=== PATIENT | female | born 1950 | race Caucasian/White ===

== ENCOUNTER → 2024-01-30 10:14 | Outpatient (REF) | payer MEDICARE, OTHER, SELFPAY | LOC: HWWDC 10:14 | PROVIDERS: ATTENDING PHYSICIAN Family Medicine | DX: Z12.31 Encounter for screening mammogram for malignant neoplasm of breast (principal) | CPT/HCPCS: 77063; 77067 ==

== ENCOUNTER → 2024-04-05 10:18 | Outpatient (REF) | payer MEDICARE, OTHER, SELFPAY ==
[2024-04-05 12:11] LABS: % Eosinophils 1.9 % (0-6); % Immature Granulocytes 0.3 % (0-0.5); % Lymphocytes 21.7 % (20.5-51.1); % Monocytes 9.6 % (1.7-9.3); % Neutrophils 65.5 % (42.2-75.2); Absolute Basophils 0.1 10^3/uL (0-0.2); Absolute Eosinophils 0.1 10^3/uL (0-0.7); Absolute Lymphocytes 1.3 10^3/uL (1.2-3.4); Absolute Monocytes 0.6 10^3/uL (0.1-0.6); Absolute Neutrophils 3.8 10^3/uL (1.4-6.5); Hematocrit 34.7 % (37.0-47.0); Hemoglobin 11.7 g/dL (12.0-16.0); Mean Corp Hgb Conc. 33.7 g/dL (33.0-37.0); Mean Corpuscular Hgb 31.5 pg (27.0-31.0); Mean Corpuscular Volume 93.3 fL (81.0-99.0); Mean Platelet Volume 11.5 fL (7.4-10.4); Nucleated Red Blood Cells % 0 %; Platelet Count 245 10^3/uL (130-400); Red Blood Cell Count 3.72 10^6/uL (4.20-5.40); Red Cell Dist. Width 12.7 % (11.5-14.5); White Blood Cell Count 5.8 10^3/uL (4.8-10.8)
[2024-04-05 12:23] LABS: ALT (SGPT) 31 U/L (0-35); AST (SGOT) 38 U/L (14-36); Alkaline Phosphatase 81 U/L (38-126); Blood Urea Nitrogen 23 mg/dl (7-17); Calcium 9.5 mg/dl (8.4-10.2); Carbon Dioxide 29 mmol/L (22-30); Chloride 103 mmol/L (98-107); Glucose 88 mg/dl (70-99); HDL Cholesterol 83 mg/dl; LDL Cholesterol, Calculated 98 mg/dl; Potassium 4.2 mmol/L (3.5-5.1); Sodium 138 mmol/L (135-145); Total Bilirubin 0.3 mg/dl (0.2-1.3); Total Cholesterol 196 mg/dl (50-199); Total Protein 6.8 g/dl (6.3-8.2); Triglyceride 77 mg/dl (10-149); Very Low Density Lipoprotein 15 mg/dl (0-30); eGFR > 60.00
[2024-04-05 12:29] LABS: Urine Albumin Negative (Neg - Trace); Urine Bilirubin Negative (Negative); Urine Character Clear (Clear); Urine Color Yellow; Urine Glucose Negative (Negative); Urine Ketone Negative (Negative); Urine Leukocyte Negative (Negative); Urine Nitrite Negative (Negative); Urine Occult Blood Negative (Negative); Urine Urobilinogen Negative (Neg - 1+)
[2024-04-05 12:49] LABS: Glycohemoglobin (HgbA1c) 5.7 % (4.0-5.6)
== END ==
LOC: HWLAB 10:18
PROVIDERS: ATTENDING PHYSICIAN Family Medicine
DX: R42 Dizziness and giddiness (principal); E78.2 Mixed hyperlipidemia; R63.6 Underweight; E03.9 Hypothyroidism, unspecified; R53.83 Other fatigue; M54.50 Low back pain, unspecified; R63.4 Abnormal weight loss; R73.9 Hyperglycemia, unspecified
CPT/HCPCS: 36415; 80053; 80061; 81003; 83036; 84443; 85025

== ENCOUNTER → 2024-06-24 13:00 | Outpatient (REF) | payer MEDICARE, OTHER, SELFPAY | LOC: HWRAD 13:00 | PROVIDERS: ATTENDING PHYSICIAN Family Medicine | DX: M54.50 Low back pain, unspecified (principal) | CPT/HCPCS: 72110 ==

== ENCOUNTER → 2024-07-12 10:33 | Outpatient (REF) | payer MEDICARE, OTHER, SELFPAY ==
[2024-07-12 11:36] LABS: % Basophils 1.1 % (0-2); % Eosinophils 3.1 % (0-6); % Immature Granulocytes 0.3 % (0-0.5); % Lymphocytes 14.4 % (20.5-51.1); % Monocytes 10.1 % (1.7-9.3); Absolute Basophils 0.1 10^3/uL (0-0.2); Absolute Eosinophils 0.2 10^3/uL (0-0.7); Absolute Monocytes 0.7 10^3/uL (0.1-0.6); Absolute Neutrophils 5.1 10^3/uL (1.4-6.5); Hematocrit 34.5 % (37.0-47.0); Hemoglobin 11.9 g/dL (12.0-16.0); Mean Corp Hgb Conc. 34.5 g/dL (33.0-37.0); Mean Corpuscular Hgb 31.9 pg (27.0-31.0); Mean Corpuscular Volume 92.5 fL (81.0-99.0); Mean Platelet Volume 10.3 fL (7.4-10.4); Nucleated Red Blood Cells % 0 %; Platelet Count 376 10^3/uL (130-400); Red Blood Cell Count 3.73 10^6/uL (4.20-5.40); Red Cell Dist. Width 12.5 % (11.5-14.5); White Blood Cell Count 7.2 10^3/uL (4.8-10.8)
[2024-07-12 14:21] LABS: ALT (SGPT) 46 U/L (0-35); AST (SGOT) 40 U/L (14-36); Albumin 4.3 g/dl (3.5-5.0); Alkaline Phosphatase 147 U/L (38-126); Blood Urea Nitrogen 25 mg/dl (7-17); Calcium 9.7 mg/dl (8.4-10.2); Carbon Dioxide 28 mmol/L (22-30); Chloride 100 mmol/L (98-107); Glucose 85 mg/dl (70-99); Iron 119 ug/dl (37-170); Potassium 4.6 mmol/L (3.5-5.1); Sodium 138 mmol/L (135-145); Total Bilirubin 0.4 mg/dl (0.2-1.3); eGFR > 60.00
[2024-07-12 14:30] LABS: Percent Saturation 35 % (20-50); Total Iron Binding Capacity 331 ug/dl (265-497)
[2024-07-12 14:51] LABS: Amylase 61 U/L (30-110); Lipase 36 U/L (23-300)
== END ==
LOC: HWLAB 10:33
PROVIDERS: ATTENDING PHYSICIAN Family Medicine
DX: R10.9 Unspecified abdominal pain (principal); R10.84 Generalized abdominal pain; D64.9 Anemia, unspecified
CPT/HCPCS: 36415; 80053; 82150; 83540; 83550; 83690; 85025

== ENCOUNTER → 2024-07-13 11:31 | Outpatient (REF) | payer MEDICARE, OTHER, SELFPAY | LOC: HWRAD 11:31 | PROVIDERS: ATTENDING PHYSICIAN Family Medicine | DX: M54.9 Dorsalgia, unspecified (principal) | CPT/HCPCS: 72072; 72110 ==

== ENCOUNTER → 2024-07-16 07:19 | Outpatient (REF) | payer MEDICARE, OTHER, SELFPAY | LOC: MRI 3T 07:19 | PROVIDERS: ATTENDING PHYSICIAN Family Medicine; REFERRING PHYSICIAN Internal Medicine | DX: S22.060A Wedge compression fracture of T7-T8 vertebra, initial encounter for closed fracture (principal) | CPT/HCPCS: 72146 ==

== ENCOUNTER → 2024-07-27 11:02 | Outpatient (REF) | payer MEDICARE, OTHER, SELFPAY | LOC: RADI 11:02 | PROVIDERS: ATTENDING PHYSICIAN Family Medicine | DX: S22.080A Wedge compression fracture of T11-T12 vertebra, initial encounter for closed fracture (principal); X58.XXXA Exposure to other specified factors, initial encounter ==

== ENCOUNTER 2024-07-27 17:45 | Emergency (ER) | payer MEDICARE, OTHER, SELFPAY ==
[2024-07-27 17:53] VITALS: BP 174/98
[2024-07-27 18:07] LABS: % Basophils 1.3 % (0-2); % Eosinophils 3.3 % (0-6); % Immature Granulocytes 0.4 % (0-0.5); % Monocytes 11.8 % (1.7-9.3); % Neutrophils 63.2 % (42.2-75.2); Absolute Basophils 0.1 10^3/uL (0-0.2); Absolute Eosinophils 0.3 10^3/uL (0-0.7); Absolute Lymphocytes 1.5 10^3/uL (1.2-3.4); Absolute Monocytes 0.9 10^3/uL (0.1-0.6); Absolute Neutrophils 4.8 10^3/uL (1.4-6.5); Hematocrit 36.6 % (37.0-47.0); Hemoglobin 12.7 g/dL (12.0-16.0); Mean Corp Hgb Conc. 34.7 g/dL (33.0-37.0); Mean Corpuscular Hgb 31.1 pg (27.0-31.0); Mean Corpuscular Volume 89.7 fL (81.0-99.0); Mean Platelet Volume 10.4 fL (7.4-10.4); Nucleated Red Blood Cells % 0 %; Platelet Count 339 10^3/uL (130-400); Red Blood Cell Count 4.08 10^6/uL (4.20-5.40); Red Cell Dist. Width 12.4 % (11.5-14.5); White Blood Cell Count 7.6 10^3/uL (4.8-10.8)
[2024-07-27 18:23] LABS: ALT (SGPT) 27 U/L (0-35); AST (SGOT) 37 U/L (14-36); Albumin 4.3 g/dl (3.5-5.0); Alkaline Phosphatase 151 U/L (38-126); Blood Urea Nitrogen 23 mg/dl (7-17); Calcium 9.2 mg/dl (8.4-10.2); Carbon Dioxide 25 mmol/L (22-30); Chloride 103 mmol/L (98-107); Glucose 86 mg/dl (70-99); Potassium 4.2 mmol/L (3.5-5.1); Sodium 141 mmol/L (135-145); Total Bilirubin 0.3 mg/dl (0.2-1.3); Total Protein 7.3 g/dl (6.3-8.2); eGFR > 60.00
[2024-07-27 19:17] VITALS: BMI 19.4
[2024-07-27 19:28] VITALS: BP 158/80
[2024-07-27 19:38] LABS: Urine Albumin Negative (Neg - Trace); Urine Bilirubin Negative (Negative); Urine Character Clear (Clear); Urine Color Yellow; Urine Glucose Negative (Negative); Urine Ketone Negative (Negative); Urine Leukocyte Trace (Negative); Urine Nitrite Negative (Negative); Urine Occult Blood Negative (Negative); Urine Urobilinogen Negative (Neg - 1+); Urine pH 6.5 (5.0-9.0)
[2024-07-27 19:44] LABS: Urine Red Blood Cell 0-2 /HPF (0-2); Urine White Cell 0-2 /HPF (0-5)
[2024-07-27 20:00] VITALS: BP 141/71
--- NOTE | 2024-07-27 20:43 | ED.GENMED ---
History of Present Illness
General
Chief Complaint: Back Pain
Source: patient
Time Seen by Provider: 07/27/24 20:26
History of Present Illness
History of Present Illness:
73-year-old female presents to the emergency room complaining of abdominal pain. Patient has been experiencing back pain and was diagnosed with a T8 compression fracture by MRI on July 16. She was seen in interventional radiology today for
consultation to see if there is anything that they could do to help with the pain. Patient has also been experiencing upper abdominal pain. This upper abdominal pain seems to be worse over the past couple days. She is also experiencing abdominal
bloating and distention for the past 3 weeks. Family concerned that her abdominal pain may be related to something different than the thoracic compression fracture prompting her visit to the emergency room. Patient is not having any vomiting. She
had a bowel movement today. No diarrhea. Patient is taking ibuprofen for pain and has been taking up to 8 tablets a day. No black or bloody stool.
Past History
Past History
ED Past Medical History: Cancer (Based basal cell) and Other (Vasovagal syncope, Vertigo)
ED Past Surgical History:
Social History
Tobacco: Former smoker
Alcohol: Occasional
Personal:
Living: with family
Phy Exam
Physical Exam
Physical Exam:
General: Awake, Alert, Oriented X3. No acute distress.
Vitals: unremarkable
Head: Atraumatic
Eyes: Pupils equal, EOMI
Throat: Airway intact, no exudates
Neck: Trachea midline
Lungs: Clear and equal b/l
Heart: Regular rate, no murmurs
Abd: Soft, moderately tender to palpation diffusely, No pulsatile mass
Neuro: Nonfocal
Skin: Warm, dry, no rash
Extremities: pulses equal b/l, no edema
Course
Orders/Labs/Results
Orders:
Orders
07/27/24 17:57
Complete Blood Count/With Diff Urgent
Comprehensive Metabolic Panel Urgent
07/27/24 19:29
UA Reflex to Culture [Urinalysis Reflex To Culture] Urgent
Date Specimen was Collected: 07/27/24
Time Specimen was Collected: 19:13
Urine Microscopic Reflex Cult Urgent
07/27/24 20:40
0.9% Sodium Chloride 1000 ml [Nss] 1,000 ml IV BOLUS
HYDROmorphone [Dilaudid] 0.25 mg IV NOW STA
Iohexol [Omnipaque] See Protocol PO NOW STA
Ondansetron Injectable [Zofran] 4 mg IV NOW STA
07/27/24 20:42
CT Abd/pel W Iv And Oral Contr Urgent
Comment:
Reason For Exam: abdominal pain, distension
07/27/24 22:08
HYDROmorphone [Dilaudid] 0.5 mg IV NOW STA
07/27/24 23:48
Ondansetron Injectable [Zofran] 4 mg IV NOW STA
Abnormal Lab Results
07/27/24 07/27/24
17:57 19:29
RBC 4.08 L 10^6/uL
(4.20-5.40)
Hct 36.6 L %
(37.0-47.0)
MCH 31.1 H pg
(27.0-31.0)
Absolute Monos (auto) 0.9 H 10^3/uL
(0.1-0.6)
Lymphocytes % 20.0 L %
(20.5-51.1)
Monocytes % 11.8 H %
(1.7-9.3)
BUN 23 H mg/dl
(7-17)
Creatinine 0.5 L mg/dL
(0.6-1.0)
AST 37 H U/L
(14-36)
Alkaline Phosphatase 151 H U/L
(38-126)
Leukocyte Esterase Rfl Trace A
(Negative)
07/27/24 17:57
07/27/24 17:57
Vital Signs
Initial and Last Documented VS:
Initial Vital Signs
Temp Pulse Resp BP Pulse Ox
98.3 F 82 16 174/98 98
07/27/24 17:53 07/27/24 17:53 07/27/24 17:53 07/27/24 17:53 07/27/24 17:53
Last Documented Vital Signs
Temp Pulse Resp BP Pulse Ox
98.3 F 75 15 137/77 93
07/27/24 17:53 07/28/24 00:30 07/28/24 00:30 07/28/24 00:00 07/27/24 23:00
MDM/Problems Addressed
Differential Diagnosis Includes:
Radicular pain from compression fracture, pancreatitis, cholecystitis, constipation, peptic ulcer disease, gastritis
MDM/Problems Addressed:
Patient presents with continued back pain as well as some abdominal pain. Her labs are reassuring. CT of the abdomen and pelvis does not show any acute inflammatory process. Urinalysis is good. There is a moderate amount of stool throughout the
rectum. Recommend lactulose for constipation. Will prescribe short course of hydrocodone to help with her back pain. Recommend treatment with pain management.
*Radiology
Radiology exam reviewed: radiology read reviewed
*Pulse Oximetry
Patient hypoxic: no
*Critical Care Note
Total Time (30-74mins, 75-104mins- exclusive of procedures): Not Applicable
ED Attending Note
-
Portions of this chart may have been created with voice recognition software.� Occasional wrong word or��sound alike� substitutions may have occurred due to the inherent limitations of voice recognition software.
Discharge Plan
Departure
Patient Disposition: Home (Routine Discharge)
Date of Disposition: 07/28/24
Time of Disposition: 00:12
Patient with high blood pressure during this ER visit?: No
Condition: Good
Discharge Problem:
Compression fx, thoracic spine, Abdominal pain, Constipation
Instructions: Upper Back Pain (DC), Constipation, Adult ED, Abdominal Pain
Prescriptions:
New
lactulose 20 gram/30 mL solution
20 g PO BID PRN (Reason: Constipation) Qty: 1200 0RF
hydrocodone-acetaminophen 5-325 mg tablet
1 tab PO QID PRN (Reason: Pain) Qty: 14 0RF
No Action
raloxifene 60 MG tablet
60 mg PO DAILY
duloxetine 30 MG capsule,delayed release(DR/EC)
30 mg PO DAILY
cholecalciferol (vitamin D3) 10,000 UNIT tablet
50,000 unit PO .QMONTH
ondansetron 4 MG tablet,disintegrating
4 mg PO Q8HPRN PRN (Reason: Nausea/Vomiting) Qty: 10 0RF
Referrals:
Flavio Best MD [Family Provider] -
Keshawn Claire MD [Active] -
Activity Restrictions/Additional Instructions:
Use lactulose twice a day until you have adequate bowel movements. Return for worsening abdominal pain. Call Dr. Claire's office in the morning.
Interventions
Interventions:
*Risk Screen - Suicide Last Done: 07/27/24 19:22
*General Assessment Last Done: 07/27/24 19:22
*Neglect/Abuse Screening Last Done: 07/27/24 19:22
ED- Fall Risk Assessment Last Done: 07/28/24 00:45
*ED COVID-19 Vaccine History Last Done: 07/27/24 19:22
*Nursing Disposition Last Done: 07/28/24 00:45
ED-Musculoskeletal Assessment Last Done: 07/27/24 21:13
Discharge Date and Time
Print Language: ARABIC
[2024-07-27] MEDS: OMNIPAQUE 50 ML PO (20:58)
[2024-07-27] MEDS: DILAUDID 0.25 MG IV (20:58)
[2024-07-27] MEDS: NSS 1000 IV (20:59)
[2024-07-27] MEDS: ZOFRAN 4 MG IV ×2 (20:59→23:50)
[2024-07-27 21:00] VITALS: BP 153/72
[2024-07-27] MEDS: DILAUDID 0.5 MG IV (22:12)
[2024-07-27 23:00] VITALS: BP 137/73
[2024-07-28] VITALS: BP 137/77
== END 2024-07-28 00:45 | disposition home or self-care (01) ==
LOC: EMR 17:45
PROVIDERS: Emergency Medicine; EMERGENCY PHYSICIAN Emergency Medicine; FAMILY PHYSICIAN Family Medicine
DX: R10.10 Upper abdominal pain, unspecified (principal); K59.00 Constipation, unspecified; S22.000A Wedge compression fracture of unspecified thoracic vertebra, initial encounter for closed fracture; X58.XXXA Exposure to other specified factors, initial encounter; Z87.891 Personal history of nicotine dependence
CPT/HCPCS: 99285; 96374; 96375; 96361; 96376 ×2; 74177; 80053; 81003; 81015; 85025; Q9967

== ENCOUNTER 2024-08-04 04:17 | Emergency (ER) | payer MEDICARE, OTHER, SELFPAY ==
[2024-08-04 04:20] VITALS: BP 110/62
[2024-08-04 04:30] VITALS: BMI 20.7
--- NOTE | 2024-08-04 04:35 | ED.GENMED ---
History of Present Illness
<PINKY Jennings - Last Filed: 08/04/24 05:53>
General
Chief Complaint: Fainting/Passed Out
Time Seen by Provider: 08/04/24 04:35
History of Present Illness
History of Present Illness:
Patient is a 74 year old female presenting to the ED after passing out x 1 hour ago. Patient states she remembers leaning over a bed to help her kid and she lost consciousness. Her helped her to a chair, and she denies falling or hitting her
head. Son stated that she was unconscious and wasn't fully oriented until about 10 minutes passed. She states she's had syncopal episodes before but they were caused from medication. She denies any numbness tingling chest pain sob headache fever.
Patient has a pmh of constipation and claims to be nauseous but is taking lactulose. She also was diagnosed with a compression fracture 2 weeks ago and reports weight loss from it. Denies any alcohol or tobacco use. She claims that narcotics make
her blood pressure drop and she passes out.
Past History
<PINKY Jennings - Last Filed: 08/04/24 05:53>
Past History
ED Past Medical History: Cancer (Based basal cell) and Other (Vasovagal syncope, Vertigo)
ED Past Surgical History:
Social History
Tobacco: Former smoker
Alcohol: Occasional
Personal:
Living: with family
Review of Systems
<PINKY Jennings - Last Filed: 08/04/24 05:53>
Review of Systems
Constitutional: Reports weight loss
Respiratory: Reports no symptoms
Cardiac: Reports no symptoms
ABD/GI: Reports abdominal pain and nausea
Neurological: Reports no symptoms
Phy Exam
<PINKY Jennings - Last Filed: 08/04/24 05:53>
Physical Exam
Physical Exam:
see physical
Cardiovascular Exam
Cardiovascular Exam: regular rate/rhythm, no edema, no gallop, no JVD and no murmur
Pulmonary Exam
Pulmonary Exam: lungs clear, no respiratory distress, no rales, chest non tender, no crackles, no rhonchi, no stridor, no wheezing and no cough
Sensory
Sensory Exam: intact
Course
<PINKY Jennings - Last Filed: 08/04/24 05:53>
Orders/Labs/Results
Orders:
Orders
08/04/24 04:45
EKG [Electrocardiogram (*1)] Urgent
Reason for Study: Syncope
08/04/24 04:46
EKG- Treatment ONCE
08/04/24 04:47
CR Abdomen - 1 View Urgent
Comment:
Reason For Exam: abd pain
08/04/24 05:03
0.9% Sodium Chloride 1000 ml [Nss] 1,000 ml IV BOLUS
08/04/24 05:11
Complete Blood Count/With Diff Urgent
Comprehensive Metabolic Panel Urgent
08/04/24 06:09
Ondansetron Injectable [Zofran] 4 mg .ROUTE .STK-MED ONE
08/04/24 06:10
Ondansetron Injectable [Zofran] 4 mg IV NOW STA
Abnormal Lab Results
08/04/24
05:11
RBC 4.07 L 10^6/uL
(4.20-5.40)
MPV 10.6 H fL
(7.4-10.4)
Absolute Monos (auto) 0.9 H 10^3/uL
(0.1-0.6)
Lymphocytes % 19.7 L %
(20.5-51.1)
Monocytes % 11.9 H %
(1.7-9.3)
BUN 22 H mg/dl
(7-17)
Creatinine 0.5 L mg/dL
(0.6-1.0)
Alkaline Phosphatase 155 H U/L
(38-126)
08/04/24 05:11
08/04/24 05:11
Vital Signs
Initial and Last Documented VS:
Initial Vital Signs
Temp Pulse Resp BP Pulse Ox
97.8 F 78 22 110/62 97
08/04/24 04:20 08/04/24 04:20 08/04/24 04:20 08/04/24 04:20 08/04/24 04:20
Last Documented Vital Signs
Temp Pulse Resp BP Pulse Ox
97.8 F 74 13 136/68 100
08/04/24 04:20 08/04/24 06:15 08/04/24 06:15 08/04/24 06:14 08/04/24 06:15
<Galen Castillo, DO - Last Filed: 08/04/24 07:30>
Orders/Labs/Results
Orders:
Orders
08/04/24 04:45
EKG [Electrocardiogram (*1)] Urgent
Reason for Study: Syncope
08/04/24 04:46
EKG- Treatment ONCE
08/04/24 04:47
CR Abdomen - 1 View Urgent
Comment:
Reason For Exam: abd pain
08/04/24 05:03
0.9% Sodium Chloride 1000 ml [Nss] 1,000 ml IV BOLUS
08/04/24 05:11
Complete Blood Count/With Diff Urgent
Comprehensive Metabolic Panel Urgent
08/04/24 06:09
Ondansetron Injectable [Zofran] 4 mg .ROUTE .STK-MED ONE
08/04/24 06:10
Ondansetron Injectable [Zofran] 4 mg IV NOW STA
Abnormal Lab Results
08/04/24
05:11
RBC 4.07 L 10^6/uL
(4.20-5.40)
MPV 10.6 H fL
(7.4-10.4)
Absolute Monos (auto) 0.9 H 10^3/uL
(0.1-0.6)
Lymphocytes % 19.7 L %
(20.5-51.1)
Monocytes % 11.9 H %
(1.7-9.3)
BUN 22 H mg/dl
(7-17)
Creatinine 0.5 L mg/dL
(0.6-1.0)
Alkaline Phosphatase 155 H U/L
(38-126)
08/04/24 05:11
08/04/24 05:11
Vital Signs
Initial and Last Documented VS:
Initial Vital Signs
Temp Pulse Resp BP Pulse Ox
97.8 F 78 22 110/62 97
08/04/24 04:20 08/04/24 04:20 08/04/24 04:20 08/04/24 04:20 08/04/24 04:20
Last Documented Vital Signs
Temp Pulse Resp BP Pulse Ox
97.8 F 74 13 136/68 100
08/04/24 04:20 08/04/24 06:15 08/04/24 06:15 08/04/24 06:14 08/04/24 06:15
<PINKY Jennings - Last Filed: 08/04/24 05:53>
MDM/Problems Addressed
Differential Diagnosis Includes:
hypoglycemia, hypotension
MDM/Problems Addressed:
order blood work and ekg
<PINKY Jennings - Last Filed: 08/04/24 05:53>
*Critical Care Note
Total Time (30-74mins, 75-104mins- exclusive of procedures): Not Applicable
ED Attending Note
<PINKY Jennings - Last Filed: 08/04/24 05:53>
-
Portions of this chart may have been created with voice recognition software.� Occasional wrong word or��sound alike� substitutions may have occurred due to the inherent limitations of voice recognition software.
<Galen Castillo DO - Last Filed: 08/04/24 07:30>
ED Attending Note
Patient seen and examined by attending physician: Yes
I performed the substantive portion of visit, reviewed & personally made and approve the management plan that is documented in note by myself or FALGUNI.: Yes
ED Attending Note:
Pleasant 74-year-old female presents to the emergency department after a near syncopal/syncopal event that occurred 1 hour prior to arrival. Patient was leaning over her bed to help her disabled adult child. She then lost consciousness. She was
helped to a chair by her . She did not fall or hit her head. Patient has been having abdominal pain recently. She was seen in the emergency department had a CAT scan performed. She has been constipated. She states that she has not had a
normal bowel movement in over a week. She states that she has not eating or drinking normally due to her abdominal bloating. Denies fever or chills. Does report some nausea without vomiting. She is due for a spinal surgery next week. She states
that because of the low back pain, she has not been eating and drinking normally lately. Patient was seen in conjunction with the PA student. I have reviewed and agree with the history and treatment plan presented. On my independent physical
exam, patient is awake, alert, and oriented x3, minimal acute distress. Heart is regular rate rhythm. Lungs are clear to auscultation bilaterally. Abdomen is soft with slight tenderness to palpation diffusely and in the lower abdomen. There are
normal bowel sounds x 4 quadrants. Patient's skin is warm and dry. She moves all 4 extremities. She is mentating appropriately. She is accompanied by her daughter.
Differential diagnosis is vasovagal syncope, constipation causing dehydration, orthostatic hypotension.
Patient had a very large bowel movement with the enema. She states that she is feeling much better and wishes to be discharged home. She will take MiraLAX [id number] as directed. She will also take stool softeners. I will provide Zofran.
She does have occasional nausea. She has no further questions at this time and both she and her daughter wish to be discharged home. Discussed return to ER instructions with patient and daughter. They verbalized good understanding and are being
discharged in much improved condition.
Discharge Plan
Departure
Patient Disposition: Home (Routine Discharge)
Date of Disposition: 08/04/24
Time of Disposition: 07:24
Patient with high blood pressure during this ER visit?: Yes
Condition: Good
Discharge Problem:
Syncope, Acute constipation
Instructions: Constipation, Adult (DC), Syncope (Fainting) (DC), Abdominal Pain, BLOOD PRESSURE
Prescriptions:
New
ondansetron 4 mg tablet,disintegrating
4 mg PO Q6H PRN (Reason: nausea and vomiting) Qty: 10 0RF
No Action
duloxetine 30 MG capsule,delayed release(DR/EC)
30 mg PO DAILY
cholecalciferol (vitamin D3) 10,000 UNIT tablet
50,000 unit PO .QMONTH
ondansetron 4 MG tablet,disintegrating
4 mg PO Q8HPRN PRN (Reason: Nausea/Vomiting) Qty: 10 0RF
lactulose 20 gram/30 mL solution
20 g PO BID PRN (Reason: Constipation) Qty: 1200 0RF
Prolia 60 mg/mL Syringe
60 mg SC [id number]
Referrals:
Flavio Best MD [Family Provider] -
Activity Restrictions/Additional Instructions:
Your prescription was sent to the pharmacy you specified.
It was a pleasure meeting you and taking part in your care. We hope for your continued healing and wellness.
Please read discharge instructions in their entirety. However, they are for general education and may not describe your exact diagnosis at discharge. Information on your ER visit and medical conditions were discussed with you along with appropriate
follow up information...
If indicated, please take your medications as instructed and indicated on discharge paperwork.
Please schedule a follow up appointment as directed. Call to schedule an appointment
Please return to the emergency department with ANY change in, persisting, or worsening of symptoms. If any of your symptoms do not improve, or persist, or become more severe within 6-12 hours, please return to the emergency department for further
care.
Please return to the emergency department if you develop a headache, neck pain/stiffness, fever greater than 100.4F, chest pain, shortness of breath, persistent nausea, vomiting, slurred speech, difficulty walking, numbness/tingling, weakness, signs
of infection or any other symptoms that are worrisome to you.
If you have any questions or concerns please do not hesitate to call the Hospital at or E-mail me directly at [email or web address]
Interventions
Interventions:
*Risk Screen - Suicide Last Done: 08/04/24 04:20
*General Assessment Last Done: 08/04/24 04:30
*Neglect/Abuse Screening Last Done: 08/04/24 04:20
ED- Fall Risk Assessment Last Done: 08/04/24 04:30
*ED COVID-19 Vaccine History Last Done: 08/04/24 04:30
Discharge Date and Time
Print Language: DIVEHI
[2024-08-04 05:09] VITALS: BP 126/74
[2024-08-04] MEDS: NSS 1000 IV (05:15)
[2024-08-04 05:21] LABS: % Basophils 1.1 % (0-2); % Eosinophils 3.8 % (0-6); % Immature Granulocytes 0.4 % (0-0.5); % Lymphocytes 19.7 % (20.5-51.1); % Monocytes 11.9 % (1.7-9.3); % Neutrophils 63.1 % (42.2-75.2); Absolute Basophils 0.1 10^3/uL (0-0.2); Absolute Eosinophils 0.3 10^3/uL (0-0.7); Absolute Lymphocytes 1.5 10^3/uL (1.2-3.4); Absolute Monocytes 0.9 10^3/uL (0.1-0.6); Absolute Neutrophils 4.7 10^3/uL (1.4-6.5); Hematocrit 37.3 % (37.0-47.0); Hemoglobin 12.5 g/dL (12.0-16.0); Mean Corp Hgb Conc. 33.5 g/dL (33.0-37.0); Mean Corpuscular Hgb 30.7 pg (27.0-31.0); Mean Corpuscular Volume 91.6 fL (81.0-99.0); Mean Platelet Volume 10.6 fL (7.4-10.4); Nucleated Red Blood Cells % 0 %; Platelet Count 301 10^3/uL (130-400); Red Blood Cell Count 4.07 10^6/uL (4.20-5.40); Red Cell Dist. Width 12.7 % (11.5-14.5); White Blood Cell Count 7.4 10^3/uL (4.8-10.8)
[2024-08-04 05:52] LABS: ALT (SGPT) 28 U/L (0-35); AST (SGOT) 34 U/L (14-36); Albumin 4.1 g/dl (3.5-5.0); Alkaline Phosphatase 155 U/L (38-126); Blood Urea Nitrogen 22 mg/dl (7-17); Calcium 9.1 mg/dl (8.4-10.2); Carbon Dioxide 24 mmol/L (22-30); Chloride 104 mmol/L (98-107); Estimated Creatinine Clearance 58 ml/min; Glucose 97 mg/dl (70-99); Potassium 4.5 mmol/L (3.5-5.1); Sodium 140 mmol/L (135-145); Total Bilirubin 0.3 mg/dl (0.2-1.3); Total Protein 6.8 g/dl (6.3-8.2); eGFR > 60.00
[2024-08-04] MEDS: ZOFRAN 4 MG IV (06:11)
[2024-08-04 06:14] VITALS: BP 136/68
== END 2024-08-04 07:30 | disposition home or self-care (01) ==
LOC: EMR 04:17
PROVIDERS: EMERGENCY PHYSICIAN Student in an Organized Health Care Education/Training Program; FAMILY PHYSICIAN Family Medicine
DX: R55 Syncope and collapse (principal); K59.09 Other constipation; Z87.891 Personal history of nicotine dependence
CPT/HCPCS: 99283; 96374; 96361; 74018; 80053; 85025; 93005

== ENCOUNTER 2024-09-07 07:45 | Emergency (ER) | payer MEDICARE, OTHER, SELFPAY ==
[2024-09-07] VITALS (9 sets, daily range): BP systolic 126–156; BP diastolic 72–82; BMI 19.9
--- NOTE | 2024-09-07 07:55 | ED.GENMED ---
History of Present Illness
<Raven Griffith MD, Resident - Last Filed: 09/07/24 14:40>
General
Chief Complaint: Bowel Problem
Source: patient
Exam Limitations: none
Time Seen by Provider: 09/07/24 07:50
History of Present Illness
History of Present Illness:
74-year-old female with PMHx of T8 vertebral compression fracture s/p kyphoplasty, presents to [facility] ER for evaluation of fecal incontinence. Initially 2 months ago she was constipated, and was started on MiraLAX bowel regimen once a
day, her constipation improved after kyphoplasty last month. For 2 weeks she was having regular bowel movements, but 2 weeks ago she started feeling backed up for about 3 to 4 days and then she started experiencing fecal incontinence. She has
overflow of her stool and would not even know until she smells bad. On last week she reached out to her primary on phone who then increased her MiraLAX dosing to 3 times a day. With increased MiraLAX dosing she was able to get bowel
movements which were pencil like, 4 on [place] stool scale but her overflow incontinence worsened with watery bowel movements. She did not notice any blood or mucus in the stools. Today in the morning she had nausea which prompted her to come to
the ER. Her incontinence is accompanied by pain in the left quadrant of the abdomen which is sharp and shooting, intermittent, 5/10 in intensity. She occasionally has rectal pain while passing stools. Over the last 1 year she also reported losing
more than 10 pounds of weight loss. Last colonoscopy was in 2019 which was normal.
She denies having rectal urgency, hesitancy, dysuria, frequency, hesitancy with urine, fevers, chills, emesis, sick contacts, prolonged hospital stays, recent antibiotic course. She did not notice much change in her strength.
Of note she saw a shading painter who prescribed her codeine and morphine, she took 1 dose of the 2 medications and had a episode of pass out hence she stopped taking opioids for pain. Currently she is alternating between optimal Tylenol
and ibuprofen regimen at home for pain.
If applicable-neuro sx onset
Onset of symptoms known: No
Time pt last seen normal is known: Yes
Date last time pt seen normal: 09/07/24
Past History
<Raven Griffith MD, Resident - Last Filed: 09/07/24 14:40>
Past History
ED Past Medical History: Cancer (basal cell) and Other (Vasovagal syncope, Vertigo)
ED Past Surgical History:
Social History
Tobacco: Former smoker
Alcohol: Occasional
Drug: None
Personal:
Living: with family
Employment: Retired
Family History
Family History: Other (Not pertinent)
Review of Systems
<Raven Griffith MD, Resident - Last Filed: 09/07/24 14:40>
Review of Systems
Allergies reviewed?: Yes
Constitutional: Reports weight loss
EENT: Reports no symptoms
Respiratory: Reports no symptoms
Cardiac: Reports no symptoms
ABD/GI: Reports abdominal pain, nausea, constipated and other (Incontinence, overflow diarrhea.)
: Reports no symptoms
Musculoskeletal: Reports no symptoms
Skin: Reports no symptoms
Neurological: Reports no symptoms
Endocrine: Reports no symptoms
Hematologic/Lymphatic: Reports no symptoms
Psychiatric: Reports no symptoms
Phy Exam
<Raven Griffith MD, Resident - Last Filed: 09/07/24 14:40>
General Physical Exam
General Presentation: well appearing
General Skin: warm
General Habitus: normal
General Mental: alert
General Hydration: appears well hydrated
Eye Exam
Eye Exam: PERRL and EOMI
Cardiovascular Exam
Cardiovascular Exam: no edema, no gallop, no murmur, JVD and no carotid bruit
Heart Sounds: normal
Pulmonary Exam
Pulmonary Exam: lungs clear, no respiratory distress, no rales, no crackles and no rhonchi
Gastrointestinal Exam
Gastrointestinal Exam: normal bowel sounds, soft, distended (Mildly distended), surgical scar, tender (Tender in left upper and left lower quadrants) and tympanitic
Rectal Exam: normal external exam, normal sphincter tone, no rectal mass, no stool and other (Mild discomfort.)
Neurological Exam
Neurological Exam: alert, no motor deficits and normal reflexs (In bilateral lower legs.)
Course
<Raven Griffith MD, Resident - Last Filed: 09/07/24 14:40>
Orders/Labs/Results
Orders:
Orders
09/07/24 08:43
Iohexol [Omnipaque] See Protocol PO NOW STA
09/07/24 08:45
CT Abd/pel W Iv And Oral Contr Urgent
Comment:
Reason For Exam: constipation and overflow incontinence
09/07/24 09:12
Complete Blood Count/With Diff Urgent
Comprehensive Metabolic Panel Urgent
09/07/24 12:46
Enema- Treatment ONCE
Type: Milk of Molasses
Abnormal Lab Results
09/07/24
09:12
RBC 3.93 L 10^6/uL
(4.20-5.40)
Hct 36.7 L %
(37.0-47.0)
MCH 32.1 H pg
(27.0-31.0)
MPV 11.2 H fL
(7.4-10.4)
Absolute Lymphs (auto) 1.1 L 10^3/uL
(1.2-3.4)
Absolute Monos (auto) 0.8 H 10^3/uL
(0.1-0.6)
Lymphocytes % 18.4 L %
(20.5-51.1)
Monocytes % 12.1 H %
(1.7-9.3)
Creatinine 0.5 L mg/dL
(0.6-1.0)
AST 41 H U/L
(14-36)
ALT 45 H U/L
(0-35)
Alkaline Phosphatase 132 H U/L
(38-126)
09/07/24 09:12
09/07/24 09:12
Vital Signs
Initial and Last Documented VS:
Initial Vital Signs
Temp Pulse Resp BP Pulse Ox
98.2 F 79 16 134/72 100
09/07/24 07:47 09/07/24 07:47 09/07/24 07:47 09/07/24 07:47 09/07/24 07:47
Last Documented Vital Signs
Temp Pulse Resp BP Pulse Ox
98.2 F 76 16 126/80 99
09/07/24 07:47 09/07/24 14:00 09/07/24 07:47 09/07/24 14:00 09/07/24 09:15
<Valentin Reynolds MD - Last Filed: 09/07/24 09:25>
Orders/Labs/Results
Orders:
Orders
09/07/24 08:43
Iohexol [Omnipaque] See Protocol PO NOW STA
09/07/24 08:45
CT Abd/pel W Iv And Oral Contr Urgent
Comment:
Reason For Exam: constipation and overflow incontinence
09/07/24 09:12
Complete Blood Count/With Diff Urgent
Comprehensive Metabolic Panel Urgent
09/07/24 12:46
Enema- Treatment ONCE
Type: Milk of Molasses
Abnormal Lab Results
09/07/24
09:12
RBC 3.93 L 10^6/uL
(4.20-5.40)
Hct 36.7 L %
(37.0-47.0)
MCH 32.1 H pg
(27.0-31.0)
MPV 11.2 H fL
(7.4-10.4)
Absolute Lymphs (auto) 1.1 L 10^3/uL
(1.2-3.4)
Absolute Monos (auto) 0.8 H 10^3/uL
(0.1-0.6)
Lymphocytes % 18.4 L %
(20.5-51.1)
Monocytes % 12.1 H %
(1.7-9.3)
Creatinine 0.5 L mg/dL
(0.6-1.0)
AST 41 H U/L
(14-36)
ALT 45 H U/L
(0-35)
Alkaline Phosphatase 132 H U/L
(38-126)
09/07/24 09:12
09/07/24 09:12
Vital Signs
Initial and Last Documented VS:
Initial Vital Signs
Temp Pulse Resp BP Pulse Ox
98.2 F 79 16 134/72 100
09/07/24 07:47 09/07/24 07:47 09/07/24 07:47 09/07/24 07:47 09/07/24 07:47
Last Documented Vital Signs
Temp Pulse Resp BP Pulse Ox
98.2 F 76 16 126/80 99
09/07/24 07:47 09/07/24 14:00 09/07/24 07:47 09/07/24 14:00 09/07/24 09:15
<Raven Griffith MD, Resident - Last Filed: 09/07/24 14:40>
*Critical Care Note
Total Time (30-74mins, 75-104mins- exclusive of procedures): Not Applicable
ED Attending Note
<Raven Griffith MD, Resident - Last Filed: 09/07/24 14:40>
-
Portions of this chart may have been created with voice recognition software.� Occasional wrong word or��sound alike� substitutions may have occurred due to the inherent limitations of voice recognition software.
<Valentin Reynolds MD - Last Filed: 09/07/24 09:25>
ED Attending Note
Patient seen and examined by attending physician: Yes
I performed a history and physical exam of patient and discussed management with resident, I reviewed resident's note and agree with documented findings and plan of care.: Yes
ED Attending Note:
74-year-old female presents with bowel leakage for a week or so. Some mild abdominal distention and bloating. Mild nausea this morning. No fever. History of recent kyphoplasty. No distal numbness tingling or weakness. No fever. History of
constipation intermittently for years.
On exam patient is nontoxic in no distress. Lungs are clear and equal. Heart regular rate and rhythm no murmur. Abdomen is soft but with mild distention diffusely across the lower abdomen. Not tender however. Questionable palpable mass left
lower quadrant. No rebound or guarding.
Clinically patient is nontoxic in no distress. She has good lower extremity strength. She has equal and reasonable patellar reflexes. She has no clonus. Nothing to support a spinal issue. She was not impacted rectally. Therefore workup for
change in bowel caliber and symptoms. Labs and CT scan.
Discharge Plan
Departure
Patient Disposition: Home (Routine Discharge)
Date of Disposition: 09/07/24
Time of Disposition: 14:36
Patient with high blood pressure during this ER visit?: No
Condition: Fair
Discharge Problem:
Overflow diarrhea, Constipation, unspecified, Abnormal stool caliber
Instructions: Constipation, Adult (DC), Fecal Impaction (DC)
Prescriptions:
No Action
duloxetine 30 MG capsule,delayed release(DR/EC)
30 mg PO DAILY
cholecalciferol (vitamin D3) 10,000 UNIT tablet
50,000 unit PO .QMONTH
ondansetron 4 MG tablet,disintegrating
4 mg PO Q8HPRN PRN (Reason: Nausea/Vomiting) Qty: 10 0RF
lactulose 20 gram/30 mL solution
20 g PO BID PRN (Reason: Constipation) Qty: 1200 0RF
Prolia 60 mg/mL Syringe
60 mg SC [id number]
ondansetron 4 mg tablet,disintegrating
4 mg PO Q6H PRN (Reason: nausea and vomiting) Qty: 10 0RF
Referrals:
UNKNOWN - PT DOES,NOT KNOW [Unknown Provider] -
Activity Restrictions/Additional Instructions:
Follow-up with your GI doctor within 2 to 3 weeks of discharge
Interventions
Interventions:
*Risk Screen - Suicide Last Done: 09/07/24 07:47
*General Assessment Last Done: 09/07/24 07:47
*Neglect/Abuse Screening Last Done: 09/07/24 07:47
*ED COVID-19 Vaccine History Last Done: 09/07/24 09:15
AY-Ukevsy-Lnxrfzmfyh Assessment Last Done: 09/07/24 10:43
Discharge Date and Time
Print Language: CAPE VERDE[place]
[2024-09-07] MEDS: OMNIPAQUE 50 ML PO (09:10)
[2024-09-07 09:35] LABS: % Basophils 1.3 % (0-2); % Eosinophils 2.1 % (0-6); % Immature Granulocytes 0.2 % (0-0.5); % Lymphocytes 18.4 % (20.5-51.1); % Monocytes 12.1 % (1.7-9.3); % Neutrophils 65.9 % (42.2-75.2); Absolute Basophils 0.1 10^3/uL (0-0.2); Absolute Eosinophils 0.1 10^3/uL (0-0.7); Absolute Lymphocytes 1.1 10^3/uL (1.2-3.4); Absolute Monocytes 0.8 10^3/uL (0.1-0.6); Absolute Neutrophils 4.1 10^3/uL (1.4-6.5); Hematocrit 36.7 % (37.0-47.0); Hemoglobin 12.6 g/dL (12.0-16.0); Mean Corp Hgb Conc. 34.3 g/dL (33.0-37.0); Mean Corpuscular Hgb 32.1 pg (27.0-31.0); Mean Corpuscular Volume 93.4 fL (81.0-99.0); Mean Platelet Volume 11.2 fL (7.4-10.4); Nucleated Red Blood Cells % 0 %; Platelet Count 262 10^3/uL (130-400); Red Blood Cell Count 3.93 10^6/uL (4.20-5.40); Red Cell Dist. Width 12.8 % (11.5-14.5); White Blood Cell Count 6.2 10^3/uL (4.8-10.8)
[2024-09-07 09:55] LABS: ALT (SGPT) 45 U/L (0-35); AST (SGOT) 41 U/L (14-36); Albumin 4.3 g/dl (3.5-5.0); Alkaline Phosphatase 132 U/L (38-126); Blood Urea Nitrogen 17 mg/dl (7-17); Calcium 8.8 mg/dl (8.4-10.2); Carbon Dioxide 24 mmol/L (22-30); Chloride 104 mmol/L (98-107); Estimated Creatinine Clearance 65 ml/min; Glucose 97 mg/dl (70-99); Potassium 4.6 mmol/L (3.5-5.1); Sodium 140 mmol/L (135-145); Total Bilirubin 0.2 mg/dl (0.2-1.3); Total Protein 6.9 g/dl (6.3-8.2); eGFR > 60.00
== END 2024-09-07 15:16 | disposition home or self-care (01) ==
LOC: EMR 07:45
PROVIDERS: Student in an Organized Health Care Education/Training Program; EMERGENCY PHYSICIAN Emergency Medicine; FAMILY PHYSICIAN Family Medicine
DX: R19.7 Diarrhea, unspecified (principal); K59.00 Constipation, unspecified; R19.5 Other fecal abnormalities; Z87.891 Personal history of nicotine dependence
CPT/HCPCS: 99284; 74177; 80053; 85025; Q9967

== ENCOUNTER → 2024-09-27 13:16 | Outpatient (REF) | payer MEDICARE, OTHER, SELFPAY ==
[2024-09-27 15:26] LABS: ALT (SGPT) 62 U/L (0-35); AST (SGOT) 50 U/L (14-36); Albumin 4.5 g/dl (3.5-5.0); Alkaline Phosphatase 110 U/L (38-126); Direct Bilirubin 0.1 mg/dl (0.0-0.4); Total Bilirubin 0.3 mg/dl (0.2-1.3); Total Protein 7.3 g/dl (6.3-8.2)
== END ==
LOC: RAD 13:16
PROVIDERS: ATTENDING PHYSICIAN Internal Medicine Gastroenterology; FAMILY PHYSICIAN Family Medicine
DX: R10.9 Unspecified abdominal pain (principal)
CPT/HCPCS: 36415; 74018; 80076

== ENCOUNTER → 2024-10-01 07:11 | Outpatient (REF) | payer MEDICARE, OTHER, SELFPAY ==
[2024-10-01 09:18] LABS: Iron 83 ug/dl (37-170)
[2024-10-01 09:56] LABS: Hepatitis B Core Ab, IgM Negative (Negative)
[2024-10-01 10:11] LABS: Hepatitis B Core Ab, Total Negative (Negative); Hepatitis B Surface Antibody Negative; Hepatitis B Surface Antigen Negative (Negative); Hepatitis C Antibody Negative (Negative)
[2024-10-03 08:08] LABS: F-Actin Antibody IgG 12 Units (0-19); Mitochondrial M2 Ab, IgG 4.8 Units (0.0-24.9)
[2024-10-03 08:35] LABS: ANA, IgG Reflex to HEp-2 None Detected (None Detected)
[2024-10-04 07:15] LABS: Endomysial IgA Antibody Titer <1:10 (<1:10)
[2024-10-04 09:02] LABS: IgA 392 mg/dl (70-400)
== END ==
LOC: HWLAB 07:11
PROVIDERS: ATTENDING PHYSICIAN Internal Medicine Gastroenterology; FAMILY PHYSICIAN Family Medicine
DX: R10.9 Unspecified abdominal pain (principal); R79.89 Other specified abnormal findings of blood chemistry
CPT/HCPCS: 36415; 82103; 82390; 82784; 83516; 83540; 86015; 86038; 86231; 86381; 86704; 86705; 86706; 86803; 87340

== ENCOUNTER → 2024-10-15 13:00 | Outpatient (REF) | payer MEDICARE, OTHER, SELFPAY | LOC: HWRAD 13:00 | PROVIDERS: ATTENDING PHYSICIAN Internal Medicine; FAMILY PHYSICIAN Family Medicine | DX: M81.0 Age-related osteoporosis without current pathological fracture (principal) | CPT/HCPCS: 77080 ==

== ENCOUNTER 2024-11-05 13:40 | Outpatient (RCR) | payer MEDICARE, OTHER, SELFPAY | END 2024-11-05 23:59 | disposition home or self-care (01) | LOC: RPT 13:40 | PROVIDERS: ATTENDING PHYSICIAN Internal Medicine Gastroenterology | DX: M62.89 Other specified disorders of muscle (principal); Z73.6 Limitation of activities due to disability; M62.81 Muscle weakness (generalized); R27.8 Other lack of coordination; N39.41 Urge incontinence | CPT/HCPCS: 97140; 97163; 97530 ==

== ENCOUNTER 2024-11-25 13:52 | Outpatient (RCR) | payer MEDICARE, OTHER, SELFPAY | END 2024-11-25 23:59 | disposition home or self-care (01) | LOC: RPT 13:52 | PROVIDERS: ATTENDING PHYSICIAN Internal Medicine Gastroenterology | DX: M62.89 Other specified disorders of muscle (principal); Z73.6 Limitation of activities due to disability; M62.81 Muscle weakness (generalized); R27.8 Other lack of coordination; N39.41 Urge incontinence | CPT/HCPCS: 97014; 97112; 97140; 97530 ==

== ENCOUNTER 2024-12-22 14:45 | Outpatient (RCR) | payer MEDICARE, OTHER, SELFPAY | END 2024-12-22 23:59 | disposition home or self-care (01) | LOC: RPT 14:45 | PROVIDERS: ATTENDING PHYSICIAN Internal Medicine Gastroenterology | DX: M62.89 Other specified disorders of muscle (principal); Z73.6 Limitation of activities due to disability; M62.81 Muscle weakness (generalized); R27.8 Other lack of coordination; N39.41 Urge incontinence | CPT/HCPCS: 97530 ==

== ENCOUNTER → 2025-02-01 09:33 | Outpatient (REF) | payer MEDICARE, OTHER, SELFPAY | LOC: HWWDC 09:33 | PROVIDERS: ATTENDING PHYSICIAN Family Medicine | DX: Z12.31 Encounter for screening mammogram for malignant neoplasm of breast (principal) | CPT/HCPCS: 77063; 77067 ==

== ENCOUNTER 2025-02-03 12:02 | Outpatient (RCR) | payer MEDICARE, OTHER, SELFPAY | END 2025-02-03 13:07 | disposition home or self-care (01) | LOC: RPT 12:02 | PROVIDERS: ATTENDING PHYSICIAN Internal Medicine Gastroenterology | DX: M62.89 Other specified disorders of muscle (principal); Z73.6 Limitation of activities due to disability; M62.81 Muscle weakness (generalized); R27.8 Other lack of coordination; N39.41 Urge incontinence | CPT/HCPCS: 97110; 97140; 97530 ==

== ENCOUNTER 2025-03-01 06:22 | Day surgery (SDC) | payer MEDICARE, OTHER, SELFPAY | END 2025-03-01 09:10 | disposition home or self-care (01) | LOC: GI 06:22 | PROVIDERS: ATTENDING PHYSICIAN Internal Medicine Gastroenterology | DX: D12.2 Benign neoplasm of ascending colon (principal); K62.89 Other specified diseases of anus and rectum; K59.00 Constipation, unspecified; K64.4 Residual hemorrhoidal skin tags | CPT/HCPCS: 45380; 88305 ==

== ENCOUNTER → 2025-03-02 09:08 | Outpatient (REF) | payer MEDICARE, OTHER, SELFPAY | LOC: HWRAD 09:08 | PROVIDERS: ATTENDING PHYSICIAN Family Medicine | DX: M25.551 Pain in right hip (principal) | CPT/HCPCS: 73502 ==

== ENCOUNTER → 2025-03-29 07:49 | Outpatient (REF) | payer MEDICARE, OTHER, SELFPAY ==
[2025-03-29 09:55] LABS: % Basophils 1.5 % (0-2); % Eosinophils 4.4 % (0-6); % Immature Granulocytes 0.3 % (0-0.5); % Lymphocytes 23.3 % (20.5-51.1); % Monocytes 11.6 % (1.7-9.3); % Neutrophils 58.9 % (42.2-75.2); Absolute Basophils 0.1 10^3/uL (0-0.2); Absolute Eosinophils 0.3 10^3/uL (0-0.7); Absolute Lymphocytes 1.4 10^3/uL (1.2-3.4); Absolute Monocytes 0.7 10^3/uL (0.1-0.6); Absolute Neutrophils 3.7 10^3/uL (1.4-6.5); Hematocrit 38.9 % (37.0-47.0); Hemoglobin 13.1 g/dL (12.0-16.0); Mean Corp Hgb Conc. 33.7 g/dL (33.0-37.0); Mean Corpuscular Hgb 31.3 pg (27.0-31.0); Mean Corpuscular Volume 93.1 fL (81.0-99.0); Mean Platelet Volume 10.9 fL (7.4-10.4); Nucleated Red Blood Cells % 0 %; Platelet Count 271 10^3/uL (130-400); Red Blood Cell Count 4.18 10^6/uL (4.20-5.40); White Blood Cell Count 6.2 10^3/uL (4.8-10.8)
[2025-03-29 11:21] LABS: Glycohemoglobin (HgbA1c) 5.5 % (4.0-5.6)
[2025-03-29 12:18] LABS: TSH 3.17 uIU/ml (0.47-4.68)
[2025-03-29 12:35] LABS: ALT (SGPT) 36 U/L (0-35); AST (SGOT) 34 U/L (14-36); Albumin 4.4 g/dl (3.5-5.0); Alkaline Phosphatase 99 U/L (38-126); Blood Urea Nitrogen 23 mg/dl (7-17); Calcium 9.2 mg/dl (8.4-10.2); Carbon Dioxide 26 mmol/L (22-30); Chloride 106 mmol/L (98-107); Glucose 99 mg/dl (70-99); HDL Cholesterol 79 mg/dl; LDL Cholesterol, Calculated 111 mg/dl; Potassium 4.5 mmol/L (3.5-5.1); Sodium 137 mmol/L (135-145); Total Bilirubin 0.4 mg/dl (0.2-1.3); Total Cholesterol 202 mg/dl (50-199); Total Protein 6.9 g/dl (6.3-8.2); Triglyceride 60 mg/dl (10-149); Very Low Density Lipoprotein 12 mg/dl (0-30); eGFR > 60.00
== END ==
LOC: HWLAB 07:49
PROVIDERS: ATTENDING PHYSICIAN Family Medicine
DX: E78.2 Mixed hyperlipidemia (principal); M81.0 Age-related osteoporosis without current pathological fracture; E03.9 Hypothyroidism, unspecified; R73.9 Hyperglycemia, unspecified; R53.83 Other fatigue
CPT/HCPCS: 36415; 80053; 80061; 83036; 84443; 85025

== ENCOUNTER → 2025-05-14 12:23 | Outpatient (REF) | payer MEDICARE, OTHER, SELFPAY | LOC: PAVMRI 12:23 | PROVIDERS: ATTENDING PHYSICIAN Physician Assistant Surgical; PRIMARYCARE PHYSICIAN Family Medicine | DX: M54.6 Pain in thoracic spine (principal); M54.50 Low back pain, unspecified; S22.000A Wedge compression fracture of unspecified thoracic vertebra, initial encounter for closed fracture | CPT/HCPCS: 72146 ==

== ENCOUNTER → 2025-06-27 10:17 | Outpatient (REF) | payer MEDICARE, OTHER, SELFPAY ==
[2025-06-27 13:05] LABS: ALT (SGPT) 47 U/L (0-35); AST (SGOT) 39 U/L (14-36); Albumin 4.3 g/dl (3.5-5.0); Alkaline Phosphatase 64 U/L (38-126); Blood Urea Nitrogen 22 mg/dl (7-17); Calcium 9.1 mg/dl (8.4-10.2); Carbon Dioxide 28 mmol/L (22-30); Chloride 98 mmol/L (98-107); Glucose 77 mg/dl (70-99); Potassium 4.1 mmol/L (3.5-5.1); Sodium 131 mmol/L (135-145); Total Protein 7.1 g/dl (6.3-8.2); eGFR > 60.00
[2025-06-27 13:19] LABS: Vitamin D, 25-OH*** 54.8 ng/mL (30-80)
== END ==
LOC: HWLAB 10:17
PROVIDERS: ATTENDING PHYSICIAN Internal Medicine; FAMILY PHYSICIAN Family Medicine
DX: E55.9 Vitamin D deficiency, unspecified (principal); M81.0 Age-related osteoporosis without current pathological fracture
CPT/HCPCS: 36415; 80053; 82306

== ENCOUNTER → 2025-10-27 07:43 | Outpatient (REF) | payer MEDICARE, OTHER, SELFPAY ==
[2025-10-27 10:34] LABS: HDL Cholesterol 69 mg/dl; LDL Cholesterol, Calculated 105 mg/dl; Very Low Density Lipoprotein 16 mg/dl (0-30)
== END ==
LOC: REG 07:43
PROVIDERS: ATTENDING PHYSICIAN Family Medicine
DX: E78.2 Mixed hyperlipidemia (principal)
CPT/HCPCS: 36415; 80061